=== PATIENT | male | born 1970 | race Caucasian/White ===

== ENCOUNTER → 2023-02-27 09:03 | Outpatient (BNVA) | payer OTHER, SELFPAY | PROVIDERS: PCP Internal Medicine; Visit Provider Physician Assistant | DX: Z12.11 Encounter for screening for malignant neoplasm of colon (principal); K58.9 Irritable bowel syndrome, unspecified; R12 Heartburn; R19.8 Other specified symptoms and signs involving the digestive system and abdomen; Z86.010 Personal history of colon polyps | CPT/HCPCS: 99202 ==

== ENCOUNTER 2023-07-07 08:51 | Outpatient (AMB) | payer OTHER, SELFPAY ==
--- NOTE | 2023-07-07 08:54 | MHC.OFFVIS ---
Intake Vital Signs 07/07/23 08:55 Height 5 ft 7 in Weight 185 lb 3.013 oz BMI 29.0 BP 105/62 Blood Pressure Location Lt brachial Position Sitting Pulse 80 Intake Visit Reasons: fu per vega 2nd opinion Intake Note: Lance presents in the office as a follow up per Vega. CC: He states that he is feeling okay today. His intestines are a little irritated. He prefers the metamucil powder over the tablet. Slate Mixer Required: No Allergies No Known Allergies Allergy (Verified 07/07/23 08:55) HPI fu per vega 2nd opinion HPI Details 52 y/o male here for f/u RECAP-[place] [facility] ? polyposis- Normal-EGD - Colonoscopy- 11/29/21- x 4 confirmed adenomatous polyps Repeat colonoscopy-07/21/22-multiple bx - he had multiple lymphoid aggregates and one came back as tubular adenoma INTERIM: He has had issues with constipation and bowel habits abdo discomfort with heartburn takes b12-Mag complex which works great for him at time of last colo he did have a stomach infection and tooth infection ?if that caused the lymphoid aggregates his heartburn is well controlled, he is adopted no known hx of CRC EXAM: GENERAL: The patient is well developed and nontoxic. VITAL SIGNS:see workflow HEENT: Nonicteric sclerae, PERRLA, EOMI. Oropharynx clear. Moist mucous membranes. Conjunctivae appear well perfused. No thyroid mass. CHEST: Chest wall is nontender. HEART: Regular rate and rhythm without murmurs. LUNGS: Clear to auscultation bilaterally. ABDOMEN: Soft, positive bowel sounds, nontender, no organomegaly.no flank tenderness SKIN: No rash, no excessive bruising, petechiae, or purpura. NEUROLOGIC: Cranial nerves II-XII intact without motor/sensory deficit. A/P: 1/ multiple colon polyps, last colo with lymphoid aggreagates but one came back as tubular adenoma, could have had more polyps, ? also subacute IBD PLAN: 1/ recommend repeat colo for re evlauation, hopefully aggregates will have gone and it will be easier to examine the mucosa, can consider geentic testing >10 pre canceorus polyps removed in aggregate across all colonoscopies. he will reach out to insurance, ?Nov 2023 timeline [facility] Medical History Sessile colonic polyp Surgical History History of vasectomy History of esophagogastroduodenoscopy (EGD) Hx of colonoscopy Social History Household Members: Spouse Household Members Other:: 2 kids Alcohol intake: never Patient Tobacco Use Status: Never used Tobacco Physical Exam Vital Signs: Last Vital Signs Pulse 80 07/07/23 08:55 BP 105/62 07/07/23 08:55 BMI result Body Mass Index 29.0 Assessment & Plan Assessment & Plan (1) History of colon polyps: Comment: Multiple colon polyps 2021-he is not convinced with the plan-needs reassurance Will get records have him follow-up with MD Code(s): Z86.010 - Personal history of colonic polyps Coding Level of Care Code Est Pt Level 3 (01579) Diagnoses History of colon polyps Z86.010
[2023-07-07 08:55] VITALS: BP 105/62; PULSE 80; BMI 29.0
== END 2023-07-07 09:21 | disposition home or self-care (01) ==
PROVIDERS: Visit Provider Internal Medicine Gastroenterology
DX: Z86.010 Personal history of colon polyps (principal)
CPT/HCPCS: 99213

== ENCOUNTER → 2023-07-07 08:51 | Outpatient (BNVA) | payer OTHER, SELFPAY | PROVIDERS: Visit Provider Internal Medicine Gastroenterology | DX: Z86.010 Personal history of colon polyps (principal) | CPT/HCPCS: 99212 ==

== ENCOUNTER 2024-06-05 09:53 | Day surgery (SDC) | payer OTHER, SELFPAY ==
--- NOTE | 2024-06-04 10:46 | P.CONAN_ITS ---
Documented by User: Sara Quinonez NP 06/04/24 10:47 HPI - Anesthesia Eval Consult details Narrative: 53yo M for Colonoscopy PMFSH Active Problems Active Problems: All Active Problems Sessile colonic polyp (Acute) Irritable bowel syndrome (IBS) (Acute) Chronic heartburn (Acute) History of colon polyps (Acute) Past Medical History Medical History Sessile colonic polyp Surgical History Surgical History History of vasectomy History of esophagogastroduodenoscopy (EGD) Hx of colonoscopy Social History Social History Household Members: Spouse Household Members Other:: 2 kids Are you a primary urgent care physician to a significant other at home: No Do you presently have visiting nurse or other home services: No Alcohol intake: never Patient Tobacco Use Status: Never used Tobacco Use of substances other than those prescribed or required for medical reasons: No Have you been hit, kicked, punched, or otherwise hurt by someone within the past year? If so, by whom?: No Are you DNR?: No Advance Directives: No Advance Directives Information Provided: Yes Recently lost weight without trying: No Nutrition Risks: No Nutritional Risk Poor oral hygiene: No Meds Allergies Allergy/AdvReac Type Severity Reaction Status Date / Time No Known Allergies Allergy Verified 07/07/23 08:55 Home Medications ?Medication ?Instructions ?Recorded ?Confirmed ?Last Taken ?Type loratadine 10 mg tablet (Claritin) 10 mg PO DAILY 02/27/23 Unknown History omeprazole magnesium 10 mg oral 10 mg PO DAILY PRN 07/07/23 Unknown History suspension,delayed release (Prilosec) psyllium seed (sugar) oral powder 1 tbsp PO DAILY 07/07/23 Unknown History (Metamucil (sugar) oral powder) Assessment and Plan Assessment Anesthesia Assessment: Chart Reviewed Documented by User: Parvez Padilla MD 06/05/24 12:49 [facility] Past Medical History Medical History Sessile colonic polyp Family History Family history of problems with anesthesia: No Surgical History Surgical History History of vasectomy History of esophagogastroduodenoscopy (EGD) Hx of colonoscopy History of Problems with Anesthesia: No Social History Social History Household Members: Spouse Household Members Other:: 2 kids Are you a primary urgent care physician to a significant other at home: No Do you presently have visiting nurse or other home services: No Alcohol intake: never Patient Tobacco Use Status: Never used Tobacco Use of substances other than those prescribed or required for medical reasons: No Have you been hit, kicked, punched, or otherwise hurt by someone within the past year? If so, by whom?: No Are you DNR?: No Advance Directives: No Advance Directives Information Provided: Yes Recently lost weight without trying: No Nutrition Risks: No Nutritional Risk Poor oral hygiene: No Meds Allergies Allergy/AdvReac Type Severity Reaction Status Date / Time No Known Allergies Allergy Verified 07/07/23 08:55 Home Medications ?Medication ?Instructions ?Recorded ?Confirmed ?Last Taken ?Type loratadine 10 mg tablet (Claritin) 10 mg PO DAILY 02/27/23 Unknown History omeprazole magnesium 10 mg oral 10 mg PO DAILY PRN 07/07/23 Unknown History suspension,delayed release (Prilosec) psyllium seed (sugar) oral powder 1 tbsp PO DAILY 07/07/23 Unknown History (Metamucil (sugar) oral powder) Exam Airway Mallampati Class: II TM Dist: >3cm Neck ROM: Full Loose/Missing/Broken Teeth: No Heart: ok Lungs: ok Assessment and Plan Assessment Anesthesia Assessment: Anesthesia Plan Discussed Final Anesthetic Review Family History of Problems with Anesthesia: No History of Problems with Anesthesia: No NPO: Yes ASA Class: II Final Preanesthetic Review: No Changes in Pt Med Stat, Meds/Allgs Chart Reviewed, Consent Obtained/Reviewed and Anes Risks/Benef Reviewed Patient Risk: Low Procedure Risk: Low Anesthetic Plan Anesthetic Plan: MAC: and Agree w/ Assess. and Plan Disposition: Standard PACU
[2024-06-05 11:28] VITALS: BP 139/86; PULSE 69; RESP 18; TEMP 36.6; O2SAT 99; BMI 28.3
--- NOTE | 2024-06-05 11:28 | MHC.SHP ---
Pre-Procedural Eval Section A - 24 Hr Update-Section A only Date of Service: 06/05/24 Section B - Complete if H&P > 30 days Chief Complaint: Polyp of colon,IBS, Relevant Family History (Specify if Yes): No Relevant Social History: None Present Medications: see Short Stay Collaborative assessment Medical History: Significant History (Sessile colonic polyp) History of Previous Operations: Relevant previous surgery/procedure and date(s) (History of vasectomy History of esophagogastroduodenoscopy (EGD) Hx of colonoscopy) Allergies: Allergies Allergy/AdvReac Type Severity Reaction Status Date / Time No Known Allergies Allergy Verified 07/07/23 08:55 Review of Systems Sugical H&P ROS: Negative: Constitution, Cardiovascular, Respiratory, Neurological, Psychiatric, Hem-Onc, Allergic/Immunologic, Gastrointestinal, Genitourinary, Musculoskeletal, Integumentary, Endocrine and Eyes/Ears/Nose/Throat Exam Surgical H&P Exam: Normal: HEENT, Normal: Heart, Normal: Lungs, Normal: Extremities, Normal: Abdomen, Normal: Skin and Normal: Neurological Plan Diagnosis/Plan: Unchanged I have reviewed the history and physical and performed a pertinent physical examination on my patient. No changes have occurred unless specified. Time Spent With Patient Time: Total time managing care of this patient today ____ minutes.
[2024-06-05] MEDS: Lactated Ringers 1,000 ML 100 ML IVCONT (11:44)
--- NOTE | 2024-06-05 12:47 | HO.OPN-COLON ---
Colonoscopy Operative Note Operative Note Date of Service: 06/05/24 Narrative: Operative Information Procedure Description: Colonoscopy Indication: screening, hx of colon polyps Anesthesia: MAC COLONOSCOPY Instrument: Olympus variable stiffness ADULT scope 190L Colonoscopy Monitoring: Vital signs and clinical assessment, continuous EKG monitoring, Pulse oximetry, Carbon Dioxide monitoring and blood pressure monitoring were done throughout the procedure. Colon withdrawal time was 12 minutes. Procedure: The patient was placed in the left lateral decubitis position and pre-procedure medications were administered. After a digital rectal examination of the ano-rectum, the video colonoscope was inserted into the rectum and advanced through the colon to the cecum/TI. The colonoscope was slowly withdrawn in a retrograde panoramic fashion and the colon mucosa was carefully examined including a retroflexed view of the rectum. Findings and interventions are described below. Procedure Difficulty: easy Findings: Terminal Ileum-normal, bx taken, nodular follicular hyperplasia noted Nodular mucosa --bx taken from right left and rectum Cecum:normal Ascending Colon: tattooo vail noted, biopsy taken Transverse Colon -normal Descending Colon:normal Sigmoid Colon: mild diverticulosis Rectum: Retroflexion with small internal hemorrhoids seen, grade I Anorectum - normal Intervention: cold forceps biopsy Colon preparation: [place] Bowel Preparation Scale Right colon; 2 Transverse colon: 2 Left colon; 3 (0 = Unprepared colon segment with mucosa not seen due to solid stool that cannot be cleared. 1 = Portion of mucosa of the colon segment seen, but other areas of the colon segment not well seen due to staining, residual stool and/or opaque liquid. 2 = Minor amount of residual staining, small fragments of stool and/or opaque liquid, but mucosa of colon segment seen well. 3 = Entire mucosa of colon segment seen well with no residual staining, small fragments of stool or opaque liquid) Impression and Post Procedure Diagnosis: diverticulosis colon polyps internal hemorrhoids Plan: High fiber diet leaflet Avoid straining at stool, epsom salts and sitz bath, anusol supps or cream Repeat Colonoscopy in 2-3 years due to hx of colon polyps or earlier if clinically indicated Above findings were reviewed with the patient and relevant handouts were provided if indicated.
[2024-06-05 13:18] VITALS: BP 96/57; PULSE 70; RESP 14; TEMP 36.6; O2SAT 96
[2024-06-05 13:33] VITALS: BP 108/61; PULSE 62; RESP 16; O2SAT 97
[2024-06-05 13:47] VITALS: BP 115/71; PULSE 70; RESP 16; TEMP 36.7; O2SAT 97
== END 2024-06-05 14:22 | disposition home or self-care (01) ==
PROVIDERS: PCP Internal Medicine; Visit Provider Internal Medicine Gastroenterology
PROC: 0DJD8ZZ Inspection of Lower Intestinal Tract, Via Natural or Artificial Opening Endoscopic (ICD-10-PCS; CPT 45378; principal; 2024-06-05 12:30)
DX: Z12.11 Encounter for screening for malignant neoplasm of colon (principal); Z86.010 Personal history of colon polyps; K58.9 Irritable bowel syndrome, unspecified; K57.30 Diverticulosis of large intestine without perforation or abscess without bleeding; K64.0 First degree hemorrhoids; R12 Heartburn; Z79.899 Other long term (current) drug therapy; Z98.52 Vasectomy status
CPT/HCPCS: 45380; 88305; J2704

== ENCOUNTER → 2024-06-05 09:53 | Outpatient (BNV) | payer OTHER, SELFPAY | PROVIDERS: PCP Internal Medicine; Visit Provider Internal Medicine Gastroenterology | DX: Z12.11 Encounter for screening for malignant neoplasm of colon (principal); K63.5 Polyp of colon; K57.90 Diverticulosis of intestine, part unspecified, without perforation or abscess without bleeding; K64.8 Other hemorrhoids; Z86.010 Personal history of colon polyps | CPT/HCPCS: 45380 ==

== ENCOUNTER 2024-06-17 13:17 | Outpatient (AMB) | payer OTHER, SELFPAY ==
--- NOTE | 2024-06-17 13:18 | MHC.OFFVIS ---
Vital Signs 06/17/24 13:19 Height 5 ft 7 in Weight 187 lb 6.287 oz BMI 29.3 BP 125/71 Blood Pressure Location Lt brachial Position Sitting Pulse 78 Intake Visit Reasons: s/p colon Intake Note: Lance presents in the office as a follow up colonoscopy. CC: Just here today for the results to his colonoscopy. Pre Assembly Wirer Required: No Allergies No Known Allergies Allergy (Verified 06/17/24 13:35) HPI HPI s/p colon: Details: 53 y/o male here for f/u RECAP-initial consult with [facility] [place] He had been established with [facility]- ? polyposis- Normal-EGD - Colonoscopy- 11/29/21- x 4 confirmed adenomatous polyps Repeat colonoscopy-07/21/22-multiple bx - he had multiple lymphoid aggregates and one came back as tubular adenoma Colonoscopy: 06/01 no polyps noted, tattoo sent he is adopted no known hx of CRC INTERIM: he has had sharp pains epigastrium and mid abdomen noticed its been getting worse on and off over the years no nausea or vomiting appetite is good EXAM: GENERAL: The patient is well developed and nontoxic. VITAL SIGNS:see workflow HEENT: Nonicteric sclerae, PERRLA, EOMI. Oropharynx clear. Moist mucous membranes. Conjunctivae appear well perfused. No thyroid mass. CHEST: Chest wall is nontender. HEART: Regular rate and rhythm without murmurs. LUNGS: Clear to auscultation bilaterally. ABDOMEN: Soft, positive bowel sounds, tender epigastrium, no organomegaly.no flank tenderness SKIN: No rash, no excessive bruising, petechiae, or purpura. NEUROLOGIC: Cranial nerves II-XII intact without motor/sensory deficit. A/P: 1/ multiple colon polyps, last colo with lymphoid aggreagates but one came back as tubular adenoma, this time no polyps seen 2/ upper abd and mid abdo pain, r/o subacute IBD or other enteropathy PLAN: 1/ ct enterogram 2/ EGD COUNTS INCLUDE [facility] BEDS AT [facility] Medical History Sessile colonic polyp Surgical History History of vasectomy History of esophagogastroduodenoscopy (EGD) Hx of colonoscopy Social History Household Members: Spouse Household Members Other:: 2 kids Are you a primary healthcare business analyst to a significant other at home: No Do you presently have visiting nurse or other home services: No Alcohol intake: never Patient Tobacco Use Status: Never used Tobacco Physical Exam Vital Signs: Last Vital Signs Pulse 78 06/17/24 13:19 BP 125/71 06/17/24 13:19 BMI result Body Mass Index 29.3 Assessment & Plan Assessment & Plan (1) Irritable bowel syndrome (IBS): Comment: Years of IBS, good response with Metamucil, however discontinue-he will resume fiber supplement give trial to [employer] Code(s): K58.9 - Irritable bowel syndrome without diarrhea Category: Medical Plan: see above (2) History of colon polyps: Comment: Multiple colon polyps 2021-he is not convinced with the plan-needs reassurance Will get records have him follow-up with MD Code(s): Z86.010 - Personal history of colonic polyps Category: Medical Plan: see above Coding Level of Care Code Est Pt Level 3 (43783) Diagnoses Irritable bowel syndrome (IBS) K58.9 History of colon polyps Z86.010
[2024-06-17 13:19] VITALS: BP 125/71; PULSE 78; BMI 29.3
== END 2024-06-17 14:04 | disposition home or self-care (01) ==
PROVIDERS: PCP Internal Medicine; Visit Provider Internal Medicine Gastroenterology
DX: K58.9 Irritable bowel syndrome, unspecified (principal); Z86.010 Personal history of colon polyps
CPT/HCPCS: 99213

== ENCOUNTER → 2024-06-17 13:17 | Outpatient (BNVA) | payer OTHER, SELFPAY | PROVIDERS: PCP Internal Medicine; Visit Provider Internal Medicine Gastroenterology | DX: K58.9 Irritable bowel syndrome, unspecified (principal); Z86.010 Personal history of colon polyps | CPT/HCPCS: 99212 ==

== ENCOUNTER 2024-10-01 09:09 | Day surgery (SDC) | payer OTHER, SELFPAY ==
[2024-09-27 14:26] VITALS: BMI 29.3
--- OUTSIDE RECORDS SUMMARY | 2024-10-01 09:12 | XMS_ITS | Continuity of Care Document ---
Author Organization [place] - [facility], [facility] Address [address] [place] [id number] Care Team Providers Care Cotton Ginner Name Role Phone CHELSEAMickyANAHY BINA Primary Care Provider Assessment No assessment recorded. Plan of Treatment Reminders Order Date Submit Date Provider Last Modified By Organization Details Last Modified Time Details Appointments Establish ed 30 2024 08:30A M YAYA Gould MD Not available Not available Not available Lab None recorded. Referral None recorded. Procedures None recorded. Surgeries None recorded. Imaging None recorded. Medication Orders None recorded. Patient TargetsNo targets recorded. Patient InstructionsNo instructions recorded. Reason for Referral None Reported. Problems Name Problem SNOMED Code Status Onset Date Resolution Date Notes Provider Name and Address Organization Details Recorded Time Conductiv e hearing loss, bilateral 217580472 Active 2020 Conductiv e hearing loss, bilateral ; Note: Date Diagnosed : 1 2:46 PM (H90.0) Not Available [facility] 4 02:39:40 Sensorine ural hearing loss 90261594 Active 2021 Perceptiv e hearing loss NOS; Note: Date Diagnosed : 12/07/2021 4:27 PM (H90.5) Not Available [facility] 4 02:39:37 Impacted cerumen of bilateral ears 00035240098 05256 Active 2020 Impacted cerumen, bilateral ; Note: Date Diagnosed : 1 2:46 PM (H61.23) Not Available [facility] 4 02:39:34 Left conductiv e hearing loss 12393987218 07 Active 2023 YAYA ESPARZA MD [address] [address], [place], [address] , [facility] 09:00:34 Problem Notes None recorded. Procedures Surgical History Date Name Laterality Status Provider Name and Address Organization Details Recorded Time Cerumen removal with microscope bilateral completed YAYA ESPARZA MD [address] [place] [address], [place], [address], [facility] 08/06/2024 08:53:17 Imaging Results None recorded. Procedure Notes None recorded. Medical Equipment None Reported. Allergies No known drug allergies Medications Name Sig Start Date Stop Date Status Note LastModified by Organization Details LastModified Time amoxicillin 500 mg capsule TAKE 1 CAPSULE BY MOUTH 3 TIMES A DAY active Not Available Not Available Not Available ondansetron HCl 4 mg tablet TAKE 1 TABLET BY MOUTH EVERY 4 TO 6 HOURS NEEDED FOR NAUSEA active Not Available Not Available No t Available oxycodone-ac etaminophen 5 mg-325 mg tablet TAKE 1 TABLET BY MOUTH EVERY 4 TO 6 HOURS NEEDED active Not Available Not Available No t Available betamethason e dipropionate 0.05 % topical cream APPLY TO LEG TWICE A DAY NEEDED active Not Available Not Available No t Available Readi-Cat 2 2 % (w/v) oral suspension USE PRIOR TO CT active Not Available Not Available No t Available Sutab 1.479-0.188- 0.225 gram tablet USE DIRECTED PER [facility] [employer] S active Not Available Not Available No t Available Vitals Date Recorded Body height Body mass index (BMI) Body weight Provider Name and Address Organization Details Last Updated DateTime 08/06/2024 170.18 cm 29.6 kg/m2 95563.96 g Yelena Richardson [facility] 08/06/2024 08:50:19 Social History None recorded. Functional Status None recorded. Mental Status None recorded. Family History Nothing Reported. Medical History No medical history recorded. Past Encounters Encounter ID Performer Location Encounter Start Date Encounter Closed Date Diagnosis/Indication Diagnosis SNOMED-CT Code Diagnosis ICD10 Code [id number] YAYA ESPARZA MD [facility] [address] [place] [address] 08/06/2024 08:42:02 08/06/2024 09:01:32 Impacted cerumen of bilateral ears 1693949677 812588 H61.23 Left condu ctive hearing loss 0828582428 107 H90.12 Health Concerns Section Related Observation LastModified by Organization Detai ls LastModified Time None Recorded Concern Status LastModified by Organization Details LastModified Time None Recorded Payers Encounter Date Sequence Insurance Name Policy Number Policy López Covered Member ID López Member ID Guarantor Name 08/06/[address] [place] [address] [id number] Lance H Weston [id number] Lance Ontiveros Notes Date Note Type Note Provider Name and Address Organization Details Recorded Time 08/06/2024 text/html He presents for a hearing concern in his left ear. He says his ears feeling blocked. He reports hearing in the left ear is muffled. Has intermittent aching in his left ear. No otorrhea. Has baseline tinnitus AU but slightly more . YAYA ESPARZA MD [address] [place] [address],[address] [address], [place], [address], [facility] - [facility] 08/06/2024 09:01:43
--- OUTSIDE RECORDS SUMMARY | 2024-10-01 09:12 | XMS_ITS | Data Portability ---
Author Organization [place] - [facility], Allergy Address [address] [place] [phone] Care Team Providers Care Lean Process Deployment Consultant Name Role Phone PHYLLISMICHELE TYSONANDRAN Primary Care Provider Assessment No assessment recorded. [...] Recorded Time Conductiv e hearing loss, bilateral 240203990 Active 2020 Conductiv e hearing loss, bilateral ; Note: Date Diagnosed : 1 2:46 PM (H90.0) Not Available [facility] 4 02:39:40 Sensorine ural hearing loss 40656036 Active 2021 Perceptiv e hearing loss NOS; Note: Date Diagnosed : 12/07/2021 4:27 PM (H90.5) Not Available [facility] 4 02:39:37 Impacted cerumen of bilateral ears 05262046111 19063 Active 2020 Impacted cerumen, bilateral ; Note: Date Diagnosed : 1 2:46 PM (H61.23) Not Available [facility] 4 02:39:34 Left conductiv e hearing loss 70655642091 07 Active 2023 YAYA ESPARZA MD [address], [address] , [facility] 09:00:34 Problem Notes None recorded. Procedures Surgical History Date Name Laterality Status Provider Name and Address Organization Details Recorded Time 4 Cerumen removal with microscope bilateral completed YAYA ESPARZA MD [address] [address], [place], [address], [facility] 08/06/2024 08:53:17 Imaging Results None recorded. Procedure [...] 1.479-0.188- 0.225 gram tablet USE DIRECTED PER [facility] [employer] S active Not Available Not Available No t Available Vitals Date Recorded Body height Body mass index (BMI) Body weight Provider Name and Address Organization Details Last Updated DateTime 08/06/2024 170.18 cm 29.6 kg/m2 99423.96 g Yelena Richardson [place] [facility] 08/06/2024 08:50:19 Social History None recorded. Functional Status None recorded. Mental Status None recorded. Family History Nothing Reported. Medical History No medical history recorded. Past Encounters Encounter ID Performer Location Encounter Start Date Encounter Closed Date Diagnosis/Indication Diagnosis SNOMED-CT Code Diagnosis ICD10 Code [id number] YAYA ESPARZA MD [facility] [address] [place] [address] 08/06/2024 08:42:02 08/06/2024 09:01:32 Impacted cerumen of bilateral ears 4719513071 877687 H61.23 Left condu ctive hearing loss 3710248143 107 H90.12 Health Concerns Section Related Observation LastModified by Organization Detai ls LastModified Time None Recorded Concern Status LastModified by Organization Details LastModified Time None Recorded Advance Directives Directive None Recorded Payers Encounter Date Sequence Insurance Name Policy Number Policy López Covered Member ID López Member ID Guarantor Name 08/06/[address] [place] [address] [id number] Lancejersey Mendozaurque [id number] Lance Ontiveros Notes Date Note Type Note Provider Name and Address Organization Details Recorded Time 08/06/2024 text/html He presents for a hearing concern in his left ear. He says his ears feeling blocked. He reports hearing in the left ear is muffled. Has intermittent aching in his left ear. No otorrhea. Has baseline tinnitus AU but slightly more . YAYA ESPARZA MD [address] [place] [address],[address] [address], [place], [address], [facility] 08/06/2024 09:01:43
[2024-10-01 09:30] VITALS: BMI 29.3
[2024-10-01] MEDS: Lactated Ringers 1,000 ML 100 ML IVCONT (09:37)
[2024-10-01 09:38] VITALS: BP 134/80; PULSE 79; RESP 18; TEMP 36.7; O2SAT 98
--- NOTE | 2024-10-01 11:16 | HO.ANESPROP2 ---
Documented by User: Sara Quinonez NP 09/30/24 12:35 HPI - Anesthesia Eval Consult details Narrative: 53yo M for Upper Endoscopy PMFSH Active Problems Active Problems: All Active Problems Irritable bowel syndrome (IBS) (Acute) Chronic heartburn (Acute) History of colon polyps (Acute) Sessile colonic polyp (Acute) Past Medical History Medical History Hyperlipidemia GERD (gastroesophageal reflux disease) Cervical radicular pain Depression ADD (attention deficit disorder) Inflammatory bowel disease Sessile colonic polyp Family History Family history of problems with anesthesia: No Surgical History Surgical History History of vasectomy History of esophagogastroduodenoscopy (EGD) Hx of colonoscopy History of Problems with Anesthesia: No Social History Social History (Updated 09/27/24 @ 14:35 by Shagufta Morgan RN) Household Members: Spouse Household Members Other:: 2 kids Are you a primary care analyst to a significant other at home: No Do you presently have visiting nurse or other home services: No Alcohol intake: never Patient Tobacco Use Status: Former Tobacco user Tobacco use type: Cigarette Years Smoked: 2 Have you been hit, kicked, punched, or otherwise hurt by someone within the past year? If so, by whom?: No Are you DNR?: No Advance Directives: No Advance Directives Information Provided: Yes Recently lost weight without trying: No Nutrition Risks: No Nutritional Risk Meds Allergies Allergy/AdvReac Type Severity Reaction Status Date / Time No Known Allergies Allergy Verified 10/01/24 09:58 Home Medications ?Medication ?Instructions ?Recorded ?Confirmed ?Last Taken ?Type fluticasone propionate 50 1 spray intranasal DAILY 09/27/24 09/27/24 Unknown History mcg/actuation nasal spray,suspension omeprazole magnesium 20 mg 20 mg PO NEEDED PRN Abdominal 09/27/24 10/01/24 Unknown History tablet,delayed release (Prilosec Discomfort OTC) Exam Height,Weight and Vital Signs: Height 5 ft 7 in Weight 84.822 kg Assessment and Plan Assessment Anesthesia Assessment: Chart Reviewed Final Anesthetic Review Family History of Problems with Anesthesia: No History of Problems with Anesthesia: No Documented by User: Shira Sr DO 10/01/24 11:16 PMFSH Past Medical History Medical History Hyperlipidemia GERD (gastroesophageal reflux disease) Cervical radicular pain Depression ADD (attention deficit disorder) Inflammatory bowel disease Sessile colonic polyp Family History Family history of problems with anesthesia: No Surgical History Surgical History History of vasectomy History of esophagogastroduodenoscopy (EGD) Hx of colonoscopy History of Problems with Anesthesia: No Social History Social History (Updated 09/27/24 @ 14:35 by Shagufta Morgan RN) Household Members: Spouse Household Members Other:: 2 kids Are you a primary care analyst to a significant other at home: No Do you presently have visiting nurse or other home services: No Alcohol intake: never Patient Tobacco Use Status: Former Tobacco user Tobacco use type: Cigarette Years Smoked: 2 Have you been hit, kicked, punched, or otherwise hurt by someone within the past year? If so, by whom?: No Are you DNR?: No Advance Directives: No Advance Directives Information Provided: Yes Recently lost weight without trying: No Nutrition Risks: No Nutritional Risk Meds Allergies Allergy/AdvReac Type Severity Reaction Status Date / Time No Known Allergies Allergy Verified 10/01/24 09:58 Home Medications ?Medication ?Instructions ?Recorded ?Confirmed ?Last Taken ?Type fluticasone propionate 50 1 spray intranasal DAILY 09/27/24 09/27/24 Unknown History mcg/actuation nasal spray,suspension omeprazole magnesium 20 mg 20 mg PO NEEDED PRN Abdominal 09/27/24 10/01/24 Unknown History tablet,delayed release (Prilosec Discomfort OTC) Exam Exam Date and Time: 10/01/24 1115 Height,Weight and Vital Signs: Height 5 ft 7 in Weight 84.822 kg Vital Signs Temperature 98.1 F 10/01/24 09:38 Pulse Rate 79 10/01/24 09:38 Respiratory Rate 18 10/01/24 09:38 Blood Pressure 134/80 10/01/24 09:38 Pulse Oximetry 98 10/01/24 09:38 Oxygen Delivery Method Room Air 10/01/24 09:38 Temperature 98.1 F 10/01/24 09:38 Pulse Rate 79 10/01/24 09:38 Respiratory Rate 18 10/01/24 09:38 Blood Pressure 134/80 10/01/24 09:38 Pulse Oximetry 98 10/01/24 09:38 Oxygen Delivery Method Room Air 10/01/24 09:38 Airway Mallampati Class: II TM Dist: >3cm Neck ROM: Full Loose/Missing/Broken Teeth: No (patient denies any loose or broken teeth) Heart: S1S2 Lungs: CTAB Assessment and Plan Assessment Anesthesia Assessment: Anesthesia Plan Discussed and Chart Reviewed Final Anesthetic Review Family History of Problems with Anesthesia: No History of Problems with Anesthesia: No NPO: Yes ASA Class: II Final Preanesthetic Review: No Changes in Pt Med Stat, Meds/Allgs Chart Reviewed, Consent Obtained/Reviewed and Anes Risks/Benef Reviewed Patient Risk: Low Procedure Risk: Low Anesthetic Plan Anesthetic Plan: MAC: and Agree w/ Assess. and Plan Disposition: Standard PACU
--- NOTE | 2024-10-01 11:44 | P.HPSUR_ITS ---
Pre-Procedural Eval Section A - 24 Hr Update-Section A only Date of Service: 10/01/24 Section B - Complete if H&P > 30 days Chief Complaint: Irritable bowel syndrome without diarrhea Relevant Family History (Specify if Yes): No Relevant Social History: None Present Medications: see Short Stay Collaborative assessment Medical History: Significant History (Hyperlipidemia GERD (gastroesophageal reflux disease) Cervical radicular pain Depression ADD (attention deficit disorder) Inflammatory bowel disease Sessile colonic polyp) History of Previous Operations: Relevant previous surgery/procedure and date(s) (History of vasectomy History of esophagogastroduodenoscopy (EGD) Hx of colonoscopy) Allergies: Allergies Allergy/AdvReac Type Severity Reaction Status Date / Time No Known Allergies Allergy Verified 10/01/24 09:58 Review of Systems Sugical H&P ROS: Negative: Constitution, Cardiovascular, Respiratory, Neurological, Psychiatric, Hem-Onc, Allergic/Immunologic, Gastrointestinal, Genitourinary, Musculoskeletal, Integumentary, Endocrine and Eyes/E ars/Nose/Throat Exam Surgical H&P Exam: Normal: HEENT, Normal: Heart, Normal: Lungs, Normal: Extremities, Normal: Abdomen, Normal: Skin and Normal: Neurological Plan Diagnosis/Plan: Unchanged I have reviewed the history and physical and performed a pertinent physical examination on my patient. No changes have occurred unless specified. Time Spent With Patient Time: Total time managing care of this patient today ____ minutes.
--- NOTE | 2024-10-01 12:02 | W.PM.OPN ---
Operative Note Operative Note Date of Service: 10/01/24 Narrative: Procedure Description: EGD Indication: epigastric pain Anesthesia: MAC FLEXIBLE TRANSORAL UPPER GASTROINTESTINAL ENDOSCOPY UPPER ENDOSCOPY Consent: Indications for the procedure and potential complications of bleeding, perforation, reaction to medications and missed diagnosis were discussed with the patient and informed consent was obtained. Instrument: Olympus GIF H 190 J mid size upper endoscope Monitoring: Vital signs and clinical assessment, continuous EKG monitoring, Pulse oximetry, Carbon Dioxide monitoring and blood pressure monitoring were done throughout the procedure. Procedure: The patient was placed in the left lateral decubitis position and pre-procedure medications were administered and a bite block was placed. The endoscope was inserted into the mouth and advanced under direct vision to the third part of duodenum. A careful inspection was made as the upper endoscope was withdrawn including a retroflexed examination of the proximal stomach; Findings and interventions are described below. Findings: Larynx:normal Esophagus: GE junction at 40 cm, diaphragm hiatus at 04 cm, mild bogginess and erythema at GEJ, bx taken from here and distal esophagus Stomach: normal mucosa . Biopsies were obtained. Grade 2 flap valve on retroflexed examination of the cardia. one biopsy site was oozing so one clip applied Duodenum: Normal bulb and descending duodenum, Intervention: Biopsies as noted above, clip for hemostasis Impression/Findings: mild esophagitis PLAN: cont with PPI GERD precautions might consider trial of pentasa --Cte was neg
[2024-10-01 12:05] VITALS: BP 97/56; PULSE 69; RESP 16; TEMP 36.2; O2SAT 95
[2024-10-01 12:21] VITALS: BP 107/72; PULSE 73; RESP 16; TEMP 36.3; O2SAT 97
== END 2024-10-01 13:26 | disposition home or self-care (01) ==
PROVIDERS: PCP Internal Medicine; Visit Provider Internal Medicine Gastroenterology
PROC: 0DJ08ZZ Inspection of Upper Intestinal Tract, Via Natural or Artificial Opening Endoscopic (ICD-10-PCS; CPT 43235; principal; 2024-10-01 12:30)
DX: K20.90 Esophagitis, unspecified without bleeding (principal); K22.89 Other specified disease of esophagus; K21.9 Gastro-esophageal reflux disease without esophagitis; K58.9 Irritable bowel syndrome, unspecified; E78.5 Hyperlipidemia, unspecified; Z86.0101 Personal history of adenomatous and serrated colon polyps
CPT/HCPCS: 43239; 88305; 88313; 88342; J2704

== ENCOUNTER → 2024-10-01 09:09 | Outpatient (BNV) | payer OTHER, SELFPAY | PROVIDERS: PCP Internal Medicine; Visit Provider Internal Medicine Gastroenterology | DX: K20.90 Esophagitis, unspecified without bleeding (principal) | CPT/HCPCS: 43239 ==

== ENCOUNTER 2024-12-16 12:09 | Outpatient (AMB) | payer OTHER, SELFPAY ==
--- NOTE | 2024-12-16 12:11 | MHC.OFFVIS ---
Intake Visit Reasons: f/u Pentasa Intake Note: Patient follow up for Pentasa. Patient cc: abdominal pain and intestinal pain on and off. Doctor Of Podiatry Required: No Allergies No Known Allergies Allergy (Verified 12/16/24 12:10) HPI HPI f/u Pentasa: Details: 54 y/o male here for f/u RECAP-initial consult with [facility] [place] He had been established with [facility] [place]- ? polyposis- Normal-EGD - Colonoscopy- 11/29/21- x 4 confirmed adenomatous polyps Repeat colonoscopy-07/21/22-multiple bx - he had multiple lymphoid aggregates and one came back as tubular adenoma Colonoscopy: 06/01 no polyps noted, tattoo sent he is adopted no known hx of CRC EGD 10/01 mild esophagitis CTe: was normal ([facility]) INTERIM: I sent him a trial of pentasa he takes only one dose a day seems to be reducing severity of his episodes appetite is good he is planning to get more allergy testing EXAM: GENERAL: The patient is well developed and nontoxic. talking easily good color A/P: 1/ multiple colon polyps, last colo with lymphoid aggreagates but one came back as tubular adenoma, this time no polyps seen 2/ upper abd and mid abdo pain, r/o subacute IBD or other enteropathy--better with mesalamine PLAN: 1/ chnge to lialda and assess response, will be easier to take [facility] Medical History Hyperlipidemia GERD (gastroesophageal reflux disease) Cervical radicular pain Depression ADD (attention deficit disorder) Inflammatory bowel disease Sessile colonic polyp Surgical History History of vasectomy History of esophagogastroduodenoscopy (EGD) Hx of colonoscopy Social History Household Members: Spouse Household Members Other:: 2 kids Are you a primary acute care clinical nurse specialist to a significant other at home: No Do you presently have visiting nurse or other home services: No Alcohol intake: never Patient Tobacco Use Status: Former Tobacco user Tobacco use type: Cigarette Years Smoked: 2 Telehealth Telehealth Telehealth Platform: Doximity Location of provider rendering services: practice address Location of patient: address on file Patient Identification confirmed using: Name, : Yes Telehealth method: video Patient verbally consented to treatment: Yes Patient verbally consented to billing insurance company: Yes Patient informed of any privacy concerns related to visit: Yes Minutes spent on Phone/Video with Pt.: 12 Assessment & Plan Assessment & Plan (1) Irritable bowel syndrome (IBS): Comment: Years of IBS, good response with Metamucil, however discontinue-he will resume fiber supplement give trial to [employer] Code(s): K58.9 - Irritable bowel syndrome, unspecified Category: Medical Plan as above Medications: New mesalamine (Lialda) 2.4 grams (2 x 1.2 gram) PO DAILY 8 weeks 112 tabs 0RF Coding Level of Care Code Tele Est Pt Level 3 (18143) Diagnoses Irritable bowel syndrome (IBS) K58.9
--- OUTSIDE RECORDS SUMMARY | 2024-12-16 13:49 | XMS_ITS | Data Portability ---
Author Organization [place] - [facility], Allergy Address [address] [place] [id number] Care Team Providers Care Marine Consultant Name Role Phone PHYLLISEARL TYSONRAN Primary Care Provider Assessment No assessment recorded. Plan of Treatment Reminders Order Date Submit Date Provider Last Modified By Organization Details Last Modified Time Details Appointments None record ed. Lab None record ed. Referral None record ed. Procedures None record ed. Surgeries None record ed. Imaging None record ed. Medication Orders None record ed. Patient TargetsNo targets recorded. Patient InstructionsNo instructions recorded. Reason for Referral None Reported. Problems Name Problem SNOMED Code Status Onset Date Resolution Date Notes Provider Name and Address Organization Details Recorded Time Conductiv e hearing loss, bilateral 698250948 Active 2020 Conductiv e hearing loss, bilateral ; Note: Date Diagnosed : 1 2:46 PM (H90.0) Not Available [facility] 4 02:39:40 Sensorine ural hearing loss 69864009 Active 2021 Perceptiv e hearing loss NOS; Note: Date Diagnosed : 12/07/2021 4:27 PM (H90.5) Not Available [facility] 4 02:39:37 Impacted cerumen of bilateral ears 52709289430 62688 Active 2020 Impacted cerumen, bilateral ; Note: Date Diagnosed : 1 2:46 PM (H61.23) Not Available [facility] 4 02:39:34 Left conductiv e hearing loss 97255922431 07 Active 2023 YAYA ESPARZA MD [address] [address], [facility] [place], [phone] , [place] - [facility] 09:00:34 Problem Notes None recorded. Procedures Surgical History Date Name Laterality Status Provider Name and Address Organization Details Recorded Time Cerumen removal with microscope bilateral completed YAYA ESPARZA MD [address] [place] [address], [phone], [facility] - [facility] 08/06/2024 08:53:17 Imaging Results None recorded. Procedure [...] 1.479-0.188- 0.225 gram tablet USE DIRECTED PER [facility] [employer] S active Not Available Not Available No t Available Vitals Date Recorded Body height Body mass index (BMI) Body weight Provider Name and Address Organization Details Last Updated DateTime 08/06/2024 170.18 cm 29.6 kg/m2 75162.96 g Yelena Richardson [place] - [facility] 08/06/2024 08:50:19 Social History None recorded. Functional Status None recorded. Mental Status None recorded. Family History Nothing Reported. Medical History No medical history recorded. Past Encounters Encounter ID Performer Location Encounter Start Date Encounter Closed Date Diagnosis/Indication Diagnosis SNOMED-CT Code Diagnosis ICD10 Code Diagnosis Note [id number] YAYA ESPARZA MD [facility] [address] [phone] 08/06/2024 08:42:02 08/06/2024 09:01:32 Impacted cerumen of bilateral ears 1668845738 619912 H61.23 Recurrent Cerumen Impactions : Ears were meticulous ly cleaned bilaterall y today with a curette and suction. The patient tolerated this well and will follow up for repeat debridemen t per routine. Left condu ctive hearing loss 9548936194 107 H90.12 Due to cerumen. hearing subjective ly improved after debridemen t. Offered audio but he declined saying the problem was improved. Health Concerns Section Related Observation LastModified by Organization Detai ls LastModified Time None Recorded Concern Status LastModified by Organization Details LastModified Time None Recorded Advance Directives Directive None Recorded Payers Encounter Date Sequence Insurance Name Policy Number Policy López Covered Member ID López Member ID Guarantor Name 08/06/[address] [place] [address] [id number] Lance Ontiveros [id number] Lance Ontiveros Notes Date Note Type Note Provider Name and Address Organization Details Recorded Time 08/06/2024 text/html He presents for a hearing concern in his left ear. He says his ears feeling blocked. He reports hearing in the left ear is muffled. Has intermittent aching in his left ear. No otorrhea. Has baseline tinnitus AU but slightly more . YAYA ESPARZA MD [address] [place] [address], [place], [phone], [facility] - [facility] 08/06/2024 09:01:43
== END 2024-12-16 12:51 | disposition home or self-care (01) ==
LOC: HO.HGI 12:09
PROVIDERS: PCP Internal Medicine; Visit Provider Internal Medicine Gastroenterology
DX: K58.9 Irritable bowel syndrome, unspecified (principal)
CPT/HCPCS: 99213

== ENCOUNTER → 2024-12-16 12:09 | Outpatient (BNVA) | payer OTHER, SELFPAY | PROVIDERS: PCP Internal Medicine; Visit Provider Internal Medicine Gastroenterology ==

== ENCOUNTER 2025-04-21 13:32 | Outpatient (AMB) | payer OTHER, SELFPAY ==
--- NOTE | 2025-04-21 13:45 | MHC.OFFVIS ---
Vital Signs 04/21/25 13:57 Height 5 ft 7 in Weight 194 lb 0.108 oz BMI 30.4 BP 123/77 Blood Pressure Location Lt brachial Position Sitting Pulse 80 Intake Visit Reasons: 4 mo f/u Intake Note: Lance presents in the office as a 4 month follow up. CC: He states that he is not having any concerns - labs uploaded through the portal. 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 polyposis- Normal-EGD - Colonoscopy- 11/29/21- x 4 confirmed adenomatous polyps Repeat colonoscopy-07/21/22-multiple bx - he had multiple lymphoid aggregates and one came back as tubular adenoma Colonoscopy: 06/01 no polyps noted, tattoo sent he is adopted no known hx of CRC EGD 10/01 mild esophagitis CTe: was normal ([facility]) INTERIM: he is taking lialda and helping a lot only using one a day he has been taking decaf coffee he was started on statin for mild high cholesterol he is happy overall EXAM: GENERAL: The patient is well developed and nontoxic. VITAL SIGNS:see workflow HEENT: Nonicteric sclerae, PERRLA, EOMI. Oropharynx clear. Moist mucous membranes. Conjunctivae appear well perfused. No thyroid mass. CHEST: Chest wall is nontender. HEART: Regular rate and rhythm without murmurs. LUNGS: Clear to auscultation bilaterally. ABDOMEN: Soft, positive bowel sounds, nontender, no organomegaly.no flank tenderness SKIN: No rash, no excessive bruising, petechiae, or purpura. NEUROLOGIC: Cranial nerves II-XII intact without motor/sensory deficit. Psych: normal affect A/P: 1/ multiple colon polyps, last colo with lymphoid aggreagates but one came back as tubular adenoma, this time no polyps seen 2/ upper abd and mid abdo pain, r/o subacute IBD or other enteropathy--better with mesalamine PLAN: 1/ check fecal lactoferrin and if high then go back to full dose lialda, PFSH Medical History Hyperlipidemia GERD (gastroesophageal reflux disease) Cervical radicular pain Depression ADD (attention deficit disorder) Inflammatory bowel disease Sessile colonic polyp Surgical History History of vasectomy History of esophagogastroduodenoscopy (EGD) Hx of colonoscopy Social History Household Members: Spouse Household Members Other:: 2 kids Are you a primary disabilities caregiver to a significant other at home: No Do you presently have visiting nurse or other home services: No Alcohol intake: never Patient Tobacco Use Status: Former Tobacco user Tobacco use type: Cigarette Years Smoked: 2 Physical Exam Vital Signs: Last Vital Signs Pulse 80 04/21/25 13:57 BP 123/77 04/21/25 13:57 BMI result Body Mass Index 30.4 Assessment & Plan Assessment & Plan (1) Colitis: Code(s): K52.9 - Noninfective gastroenteritis and colitis, unspecified Category: Medical Plan: as above Orders: Orders Lactoferrin, Fecal, Quant. Today K51.50 - Left sided colitis without complications Coding Level of Care Code Est Pt Level 3 (22882) Diagnoses Colitis K52.9
[2025-04-21 13:57] VITALS: BP 123/77; PULSE 80; BMI 30.4
== END 2025-04-21 14:32 | disposition home or self-care (01) ==
LOC: HO.HGI 13:33
PROVIDERS: PCP Internal Medicine; Visit Provider Internal Medicine Gastroenterology
DX: K52.9 Noninfective gastroenteritis and colitis, unspecified (principal)
CPT/HCPCS: 99213

== ENCOUNTER → 2025-04-21 13:32 | Outpatient (BNVA) | payer OTHER, SELFPAY | PROVIDERS: PCP Internal Medicine; Visit Provider Internal Medicine Gastroenterology | DX: K51.50 Left sided colitis without complications (principal) | CPT/HCPCS: 99212 ==